=== PATIENT | female | born 1975 | race Two or more races ===

== ENCOUNTER 2022-11-22 15:10 | Emergency (ER) | payer MEDICAID, OTHER ==
[~2022-11-22] VITALS: Ht 165.1 cm; Wt 92.5 kg
[2022-11-22 16:59] VITALS: BP 163/58
[2022-11-22] MEDS ORDERED: METR500T PO (17:40)
== END 2022-11-22 17:45 | disposition home or self-care (01) ==
LOC: ER 15:10
DX: N76.0 Acute vaginitis (principal); B96.89 Other specified bacterial agents as the cause of diseases classified elsewhere; Z30.431 Encounter for routine checking of intrauterine contraceptive device; Z79.899 Other long term (current) drug therapy
CPT/HCPCS: 76856; 87210